=== PATIENT | female | born 1930 | race Caucasian/White ===

== ENCOUNTER 2018-07-25 11:16 | Emergency (ER) | payer MEDICARE, OTHER ==
[~2018-07-25] VITALS: Ht 160 cm; Wt 83.9 kg
[~2018-07-25 11:16] MED LIST: ALBU90OI; AMOCLA875 PO; ASPI325B; ASPI81CH; ASPI81CH PO; ATEN50; BUDE10.22 INH; BUPR100 PO; Bystolic10 MG PO; CYAN500 PO; CYCL10 PO; DICL25ER; DICL50ER PO; DRON2.5; FLAX; FURO40; HYDACE5 PO; HYDPAM50 PO; LOSA50 PO; MONT10T; MONTELUKAST; MULVITA; NEBI10 PO; Norvasc2.5 MG PO; OXYACE5T PO; POTCHL10ER; PRAV20 PO; PRED20 PO; Prilosec Otc20 MG PO; SIMV5 PO; TRAM50 PO; [UNRECOGNIZED DRUG - OTHER]; advair; bystolic PO; cyclobenzaprine; hydrocodone/apap; lisinopril; metoprolol; omeprazole PO
[2018-07-25 11:54] LABS: BASOPHILS ABSOLUTE AUTO 0.02 K/mm3 (0.00-0.23); BASOPHILS PERCENT AUTO 0 % (0-2); EOSINOPHILS ABSOLUTE AUTO 0.11 K/mm3 (0.00-0.68); EOSINOPHILS PERCENT AUTO 1 % (0-6); Hematocrit 35.4 % (33.0-51.0); Hemoglobin 11.9 g/dL (11.5-16.0); IMMATURE GRAN ABSOLUTE AUTO 0.05 K/mm3 (0.00-0.10); IMMATURE GRAN PERCENT AUTO 1 % (0-1); LYMPHOCYTES ABSOLUTE AUTO 1.37 K/mm3 (0.84-5.20); LYMPHOCYTES PERCENT AUTO 15 % (21-46); MONOCYTES ABSOLUTE AUTO 1.07 K/mm3 (0.16-1.47); MONOCYTES PERCENT AUTO 11 % (4-13); Mean Corpuscular HGB 30.5 pg (26.0-34.0); Mean Corpuscular HGB Conc 33.6 g/dL (31.5-36.5); Mean Corpuscular Volume 91 fL (80-100); Mean Platelet Volume 8.4 fL (9.1-12.4); NEUTROPHILS PERCENT AUTO 72 % (41-73); Platelet Count 276 K/mm3 (150-400); RDW Coefficient Variation 13.7 % (11.7-14.2); RDW Standard Deviation 45.4 fL (35.1-46.3); White Blood Cell Count 9.42 K/mm3 (4.00-11.30)
[2018-07-25 12:12] LABS: Bun/Creatinine Ratio 29.3 (12.0-20.0); Calcium, Blood 8.6 mg/dL (8.5-10.1); Creatinine, Blood 0.96 mg/dL (0.40-1.00); Potassium, Blood 4.1 mmol/L (3.5-5.5)
[2018-07-25] MEDS ORDERED: DEXA4 PO (12:20)
[2018-07-25] MEDS ORDERED: CEPH250A PO (12:21)
[2018-07-25] MEDS ORDERED: CLOP75 PO (12:22)
[2018-07-25] MEDS ORDERED: Daily Multiple1 EACH PO (12:22)
[2018-07-25] MEDS ORDERED: MEGARED OMEGA-1 EAC1 PO (12:22)
[2018-07-25] MEDS ORDERED: ASPI81CH PO (12:23)
[2018-07-25] MEDS ORDERED: Pravachol40 MG PO (12:24)
[2018-07-25] MEDS ORDERED: MONT10T PO (12:28)
[2018-07-25] MEDS ORDERED: Ultram50 MG PO (14:40)
== END 2018-07-25 15:13 | disposition home or self-care (01) ==
LOC: ER 11:16
PROVIDERS: Emergency Medicine
DX: S70.01XA Contusion of right hip, initial encounter (principal); I11.0 Hypertensive heart disease with heart failure; I50.9 Heart failure, unspecified; J44.9 Chronic obstructive pulmonary disease, unspecified; Z88.8 Allergy status to other drugs, medicaments and biological substances; Z88.2 Allergy status to sulfonamides; Z88.5 Allergy status to narcotic agent; Z79.899 Other long term (current) drug therapy; Z87.891 Personal history of nicotine dependence; Z79.82 Long term (current) use of aspirin; Z79.01 Long term (current) use of anticoagulants; Z79.51 Long term (current) use of inhaled steroids; W18.30XA Fall on same level, unspecified, initial encounter
CPT/HCPCS: 72192; 73502; 73552; 80048; 85025; 93005; 93010; 99285-25

== ENCOUNTER 2018-11-08 06:02 | Day surgery (SDC) | payer MEDICARE, OTHER ==
[~2018-11-08] VITALS: Ht 160 cm; Wt 79.4 kg
[~2018-11-08 06:02] MED LIST changes: -ALBU90OI; +ALBU90OI INH; +CEPH250A PO; +CLOP75 PO; +DEXA4 PO; +Daily Multiple1 EACH PO; +MEGARED OMEGA-1 EAC1 PO; +MONT10T PO; +Pravachol40 MG PO; +Ultram50 MG PO
== END 2018-11-08 09:20 | disposition home or self-care (01) ==
LOC: ORSCMMR 06:02 → ORD 07:30 → ORSCMMR 07:30
PROVIDERS: Surgery
PROC: 02HV33Z Insertion of Infusion Device into Superior Vena Cava, Percutaneous Approach (ICD-10-PCS; principal; 2018-11-08 07:30)
DX: C50.912 Malignant neoplasm of unspecified site of left female breast (principal); C77.3 Secondary and unspecified malignant neoplasm of axilla and upper limb lymph nodes; E78.5 Hyperlipidemia, unspecified; I10 Essential (primary) hypertension; K21.9 Gastro-esophageal reflux disease without esophagitis; J44.9 Chronic obstructive pulmonary disease, unspecified; I25.10 Atherosclerotic heart disease of native coronary artery without angina pectoris; Z95.2 Presence of prosthetic heart valve; Z79.899 Other long term (current) drug therapy
CPT/HCPCS: 77001; C1788; J0690; J1642; J2250; J3010; J7120

== ENCOUNTER 2018-11-18 12:08 | Emergency (ER) | payer OTHER, MEDICARE ==
[~2018-11-18] VITALS: Ht 160 cm; Wt 77.6 kg
[2018-11-18 13:12] LABS: BASOPHILS ABSOLUTE AUTO 0.01 K/mm3 (0.00-0.23); BASOPHILS PERCENT AUTO 0 % (0-2); EOSINOPHILS ABSOLUTE AUTO 0.28 K/mm3 (0.00-0.68); EOSINOPHILS PERCENT AUTO 3 % (0-6); Hematocrit 32.5 % (33.0-51.0); Hemoglobin 11.3 g/dL (11.5-16.0); IMMATURE GRAN ABSOLUTE AUTO 0.04 K/mm3 (0.00-0.10); IMMATURE GRAN PERCENT AUTO 0 % (0-1); LYMPHOCYTES ABSOLUTE AUTO 0.51 K/mm3 (0.84-5.20); LYMPHOCYTES PERCENT AUTO 6 % (21-46); MONOCYTES ABSOLUTE AUTO 0.99 K/mm3 (0.16-1.47); MONOCYTES PERCENT AUTO 11 % (4-13); Mean Corpuscular HGB 35.2 pg (26.0-34.0); Mean Corpuscular HGB Conc 34.8 g/dL (31.5-36.5); Mean Corpuscular Volume 101 fL (80-100); Mean Platelet Volume 7.7 fL (9.1-12.4); NEUTROPHILS ABSOLUTE AUTO 7.41 K/mm3 (1.96-9.15); NEUTROPHILS PERCENT AUTO 80 % (41-73); Platelet Count 180 K/mm3 (150-400); RDW Coefficient Variation 14.9 % (11.7-14.2); RDW Standard Deviation 55.9 fL (35.1-46.3); Red Blood Cell Count 3.21 M/mm3 (3.80-5.20); White Blood Cell Count 9.24 K/mm3 (4.00-11.30)
[2018-11-18 13:34] LABS: Alanine Aminotransfer (ALT/SGP 31 U/L (12-78); Albumin, Blood 3.2 g/dL (3.4-5.0); Alk Phos 58 U/L (50-136); Anion Gap 9 mmol/L (6-16); Aspartate Aminotrans (AST/SGOT 26 U/L (12-37); Blood Urea Nitrogen 16 mg/dL (8-24); Bun/Creatinine Ratio 25.2 (12.0-20.0); CO2, Blood 24 mmol/L (21-32); Calcium, Blood 8.4 mg/dL (8.5-10.1); Chloride, Blood 91 mmol/L (98-108); Creatinine, Blood 0.63 mg/dL (0.40-1.00); Globulin, Blood 3.1 g/dL (2.2-4.0); Glomerular Filtration Rate >60 (60-); Glucose, Blood 117 mg/dL (70-99); Potassium, Blood 3.8 mmol/L (3.5-5.5); Sodium, Blood 124 mmol/L (136-145); Total Protein, Blood 6.3 g/dL (6.4-8.2); Troponin I 0.027 ng/mL (0.000-0.040)
[2018-11-18] MEDS ORDERED: Vibramycin100 MG PO (14:36)
== END 2018-11-18 15:31 | disposition home or self-care (01) ==
LOC: ER 12:08
PROVIDERS: Emergency Medicine
DX: J44.9 Chronic obstructive pulmonary disease, unspecified (principal); R07.9 Chest pain, unspecified; E87.1 Hypo-osmolality and hyponatremia; I50.9 Heart failure, unspecified; Z96.651 Presence of right artificial knee joint; Z90.710 Acquired absence of both cervix and uterus; Z87.891 Personal history of nicotine dependence; Z88.5 Allergy status to narcotic agent; Z88.2 Allergy status to sulfonamides; Z88.8 Allergy status to other drugs, medicaments and biological substances; Z79.82 Long term (current) use of aspirin; Z79.899 Other long term (current) drug therapy; Z85.3 Personal history of malignant neoplasm of breast
CPT/HCPCS: 36415; 71260; 80053; 83880; 84484; 85025; 93005; 93010; 96360; 99285-25; J7030; Q9967

== ENCOUNTER 2018-11-25 21:38 | Inpatient (IN) | payer MEDICARE, OTHER ==
[~2018-11-25] VITALS: Ht 160 cm; Wt 80.4 kg
[~2018-11-25 21:38] MED LIST changes: +Vibramycin100 MG PO
[2018-11-25] MEDS ORDERED: ALCALAK PO (21:51)
[2018-11-25 22:14] LABS: BASOPHILS ABSOLUTE AUTO 0.02 K/mm3 (0.00-0.23); BASOPHILS PERCENT AUTO 0 % (0-2); EOSINOPHILS ABSOLUTE AUTO 0.04 K/mm3 (0.00-0.68); EOSINOPHILS PERCENT AUTO 1 % (0-6); Hematocrit 29.6 % (33.0-51.0); Hemoglobin 10.8 g/dL (11.5-16.0); IMMATURE GRAN ABSOLUTE AUTO 0.11 K/mm3 (0.00-0.10); IMMATURE GRAN PERCENT AUTO 2 % (0-1); LYMPHOCYTES PERCENT AUTO 14 % (21-46); MONOCYTES ABSOLUTE AUTO 0.69 K/mm3 (0.16-1.47); MONOCYTES PERCENT AUTO 12 % (4-13); Mean Corpuscular HGB Conc 36.5 g/dL (31.5-36.5); Mean Platelet Volume 7.7 fL (9.1-12.4); NEUTROPHILS ABSOLUTE AUTO 4.07 K/mm3 (1.96-9.15); NEUTROPHILS PERCENT AUTO 71 % (41-73); Platelet Count 232 K/mm3 (150-400); RDW Coefficient Variation 13.9 % (11.7-14.2); RDW Standard Deviation 48.9 fL (35.1-46.3); Red Blood Cell Count 3.09 M/mm3 (3.80-5.20); White Blood Cell Count 5.73 K/mm3 (4.00-11.30)
[2018-11-25 22:17] LABS: Mean Corpuscular Volume 96 fL (80-100)
[2018-11-25 22:29] LABS: Source, Urine Clean Catch
[2018-11-25 22:32] LABS: Bilirubin, Urine Neg (Neg); Blood, Urine Neg (Neg); Glucose Qualitative, Urine Neg (Neg); Ketones, Urine Neg (Neg); Leukocyte Esterase, Urine Neg (Neg); Nitrite, Urine Neg (Neg); Protein, Urine Neg (Neg); Urobilinogen, Urine NORM (Normal)
[2018-11-25 22:35] LABS: Alanine Aminotransfer (ALT/SGP 37 U/L (12-78); Albumin, Blood 3.1 g/dL (3.4-5.0); Albumin/Globulin Ratio 1.1 (0.8-1.8); Alk Phos 53 U/L (50-136); Anion Gap 13 mmol/L (6-16); Aspartate Aminotrans (AST/SGOT 24 U/L (12-37); Bilirubin, Total 0.7 mg/dL (0.1-1.0); Blood Urea Nitrogen 19 mg/dL (8-24); CO2, Blood 22 mmol/L (21-32); Calcium, Blood 8.1 mg/dL (8.5-10.1); Chloride, Blood 82 mmol/L (98-108); Creatinine, Blood 0.68 mg/dL (0.40-1.00); Globulin, Blood 2.7 g/dL (2.2-4.0); Glomerular Filtration Rate >60 (60-); Glucose, Blood 117 mg/dL (70-99); Sodium, Blood 117 mmol/L (136-145); Total Protein, Blood 5.8 g/dL (6.4-8.2)
[2018-11-25 22:36] LABS: Appearance, Urine Clear (Clear); Color, Urine Yellow (P-Yellow)
[2018-11-26 01:58] LABS: Anion Gap 11 mmol/L (6-16); Blood Urea Nitrogen 19 mg/dL (8-24); Bun/Creatinine Ratio 28.1 (12.0-20.0); CO2, Blood 24 mmol/L (21-32); Calcium, Blood 7.9 mg/dL (8.5-10.1); Chloride, Blood 84 mmol/L (98-108); Creatinine, Blood 0.68 mg/dL (0.40-1.00); Glomerular Filtration Rate >60 (60-); Glucose, Blood 111 mg/dL (70-99); Potassium, Blood 3.2 mmol/L (3.5-5.5); Sodium, Blood 119 mmol/L (136-145)
[2018-11-26 02:36] LABS: Adenovirus Not Detected (NOT DETECT); Bordetella pertussis Not Detected (NOT DETECT); Chlamydophila pneumoniae Not Detected (NOT DETECT); Coronavirus 229E Not Detected (NOT DETECT); Coronavirus HKU1 Not Detected (NOT DETECT); Coronavirus NL63 Not Detected (NOT DETECT); Coronavirus OC43 Not Detected (NOT DETECT); Human Metapneumovirus Not Detected (NOT DETECT); Influenza A/2009-H1 Not Detected (NOT DETECT); Influenza A/H1 Not Detected (NOT DETECT); Influenza A/H3 Not Detected (NOT DETECT); Influenza B Not Detected (NOT DETECT); Mycoplasma pneumoniae Not Detected (NOT DETECT); Parainfluenza Virus 1 Not Detected (NOT DETECT); Parainfluenza Virus 2 Not Detected (NOT DETECT); Parainfluenza Virus 3 Not Detected (NOT DETECT); Parainfluenza Virus 4 Not Detected (NOT DETECT); Respiratory Syncytial Virus Not Detected (NOT DETECT)
[2018-11-26 04:31] LABS: Human Rhinovirus/Enterovirus Detected (NOT DETECT); Influenza A Not Detected (NOT DETECT)
--- NOTE | 2018-11-26 05:25 | NUR ---
Pt gave this student permission to look through her medical records and provide care today on 11/26/18.
[2018-11-26 05:29] LABS: Hematocrit 25.2 % (33.0-51.0); Hemoglobin 9.2 g/dL (11.5-16.0); Mean Corpuscular HGB 34.7 pg (26.0-34.0); Mean Corpuscular HGB Conc 36.5 g/dL (31.5-36.5); Mean Corpuscular Volume 95 fL (80-100); Mean Platelet Volume 7.8 fL (9.1-12.4); Platelet Count 208 K/mm3 (150-400); RDW Coefficient Variation 13.8 % (11.7-14.2); RDW Standard Deviation 47.6 fL (35.1-46.3); Red Blood Cell Count 2.65 M/mm3 (3.80-5.20); White Blood Cell Count 9.34 K/mm3 (4.00-11.30)
--- NOTE | 2018-11-26 06:01 | NUR ---
PHYSICIAN COMMUNICATION [id number] DR. SOLARES NOTIFIED PT UNABLE TO VOID THIS AM; PT PREFERS STRAIGHT CATH. ONE TIME ORDER GIVEN AND BLADDER SCAN ORDER. PERMISSION TO CANCEL 1838 LAB DRAW. [facility].
[2018-11-26 06:05] LABS: Alanine Aminotransfer (ALT/SGP 30 U/L (12-78); Albumin, Blood 2.8 g/dL (3.4-5.0); Albumin/Globulin Ratio 1.2 (0.8-1.8); Alk Phos 48 U/L (50-136); Aspartate Aminotrans (AST/SGOT 23 U/L (12-37); Bilirubin, Total 0.7 mg/dL (0.1-1.0); Blood Urea Nitrogen 19 mg/dL (8-24); Bun/Creatinine Ratio 26.5 (12.0-20.0); CO2, Blood 21 mmol/L (21-32); Calcium, Blood 7.4 mg/dL (8.5-10.1); Chloride, Blood 86 mmol/L (98-108); Creatinine, Blood 0.72 mg/dL (0.40-1.00); Globulin, Blood 2.4 g/dL (2.2-4.0); Glomerular Filtration Rate >60 (60-); Glucose, Blood 105 mg/dL (70-99); Potassium, Blood 3.3 mmol/L (3.5-5.5); Total Protein, Blood 5.2 g/dL (6.4-8.2)
[2018-11-26 06:07] LABS: Anion Gap 12 mmol/L (6-16)
[2018-11-26 06:11] LABS: Sodium, Blood 119 mmol/L (136-145)
--- NOTE | 2018-11-26 08:29 | NUR ---
SHIFT SUMMARY PT A&O X4 T/O SHIFT. NO ACUTE CHAGES. PT ADMITTED FROM ER. IMMOBILIZER TO RLE; PPPX4; PT STS N/T AT BASELINE. PAIN IN LLE AND BACK PER EMAR. RLE ELEVATED T/O SHIFT. EXT PWD. ABRATION TO L KNEE, DRY, NO BRUISING OR OTHER INJURY D/T PT REPORTED FALL AT HOME NOTED. TELEMETRY IN PLACE; SE WITH BBB THIS AM PER JOINT MACHINE OPERATOR. RA; DENIES SOB, NAUSEA AND CP. PT REPOSITIONED TOLERATED. PT UNABLE TO VOID, THIS AM, BLADDER SCAN OVER 700 ML; STRAIGHT CATH X1 PER DR. SOLARES; 750 ML URINE OUT. BED ALARM AND SIDE [id number]. REPORT GIVEN TO DAY SHIFT RN.
--- NOTE | 2018-11-26 10:16 | NUR ---
PLAVIX/ASA DR. CERDA CONTACTED TO ASK IF PLAVIX AND ASA SHOULD BE HELD. PER DR. CERDA WILL CONTINUE TO GIVE ASA AND PLAVIX SINCE PT REPORTS HAVING STENTS PLACED INT THE LAST 3-4 MONTHS. WILL CONTINUE TO MONITOR.
--- NOTE | 2018-11-26 10:18 | NUR ---
R HIP PAIN PT REPORTS SHE IS HAVING PAIN IN HER R HIP AND THAT IS THE LOCATION OF MOST OF HER PAIN. PT HAS BRUISING TO HER R HIP AND HER R FLANK AREA. DR. CERDA NOTIFIED. WILL CONTINUE TO MONITOR.
[2018-11-26 12:19] LABS: Anion Gap 10 mmol/L (6-16); Blood Urea Nitrogen 18 mg/dL (8-24); Bun/Creatinine Ratio 28.9 (12.0-20.0); CO2, Blood 21 mmol/L (21-32); Calcium, Blood 7.4 mg/dL (8.5-10.1); Chloride, Blood 85 mmol/L (98-108); Creatinine, Blood 0.62 mg/dL (0.40-1.00); Glomerular Filtration Rate >60 (60-); Glucose, Blood 140 mg/dL (70-99); Potassium, Blood 3.9 mmol/L (3.5-5.5); Sodium, Blood 116 mmol/L (136-145)
--- NOTE | 2018-11-26 14:15 | NUR ---
MEDICAL RECRUITER ASSESSMENT ASSESSMENT PERFORMED BY LUIS A STUDENT NURSE WITH SUPERVISION BY THIS RN AT THE BEDSIDE. DOCUMENTATION WAS REVIEWED AND THIS RN AGREES WITH STUDENT NURSE DOCUMENTATION. WILL CONTINUE TO MONITOR FOR ANY CHANGES.
[2018-11-26 16:46] LABS: Blood Urea Nitrogen 16 mg/dL (8-24); Bun/Creatinine Ratio 22.3 (12.0-20.0); CO2, Blood 22 mmol/L (21-32); Calcium, Blood 7.7 mg/dL (8.5-10.1); Chloride, Blood 86 mmol/L (98-108); Creatinine, Blood 0.72 mg/dL (0.40-1.00); Glomerular Filtration Rate >60 (60-); Glucose, Blood 98 mg/dL (70-99)
[2018-11-26 17:10] LABS: Anion Gap 8 mmol/L (6-16); Sodium, Blood 116 mmol/L (136-145)
[2018-11-26 17:29] LABS: Source, Urine Catheter
[2018-11-26 17:45] LABS: Bilirubin, Urine Neg (Neg); Blood, Urine Neg (Neg); Glucose Qualitative, Urine Neg (Neg); Ketones, Urine 1+ (Neg); Leukocyte Esterase, Urine Neg (Neg); Nitrite, Urine Neg (Neg); Protein, Urine Neg (Neg); Urobilinogen, Urine NORM (Normal)
[2018-11-26 17:51] LABS: Appearance, Urine Clear (Clear); Color, Urine Yellow (P-Yellow)
[2018-11-26 17:51] LABS: Uric Acid, Blood 2.9 mg/dL (2.6-6.0)
--- NOTE | 2018-11-26 18:05 | NUR ---
SHIFT SUMMARY PAIN HAS BEEN MINIMAL THIS SHIFT AND IS MANAGED WITH TYLENOL AND IV FENTANYL. SODIUM HAS REMAINED LOW THIS SHIFT, DR. CASTILLO CONSULTED FOR MANAGEMENT. PT REQUIRES ASSISTANCE WHEN REPOSITIONING. VSS. WILL CONTINUE TO MONITOR.
[2018-11-26 18:14] LABS: Anion Gap 9 mmol/L (6-16); Blood Urea Nitrogen 14 mg/dL (8-24); Bun/Creatinine Ratio 21.5 (12.0-20.0); CO2, Blood 21 mmol/L (21-32); Calcium, Blood 7.5 mg/dL (8.5-10.1); Chloride, Blood 87 mmol/L (98-108); Creatinine, Blood 0.65 mg/dL (0.40-1.00); Glomerular Filtration Rate >60 (60-); Glucose, Blood 91 mg/dL (70-99); Potassium, Blood 4.1 mmol/L (3.5-5.5); Sodium, Blood 117 mmol/L (136-145)
--- NOTE | 2018-11-26 19:34 | NUR ---
HYPONATREMIA DR. CASTILLO NOTIFIED OF SODIUM OF 117, URIC ACID OF 2.9 AND SERUM OSMOLALITY OF 243 AT APPROXIMATELY 1835. ORDER RECIEVED TO TRANSFER TO ICU WITH 3% SALINE. DR. CERDA NOTIFIED OF PLAN TO TRANSFER. NO NOTED CHANGE IN PATIENTS CONDITION.
--- NOTE | 2018-11-26 19:37 | NUR ---
REPORT REPORT CALLED TO ANNITA SIERRA IN ICU AT APPROXIMATELY 1921. FAMILY WAS NOTIFIED OF PLAN TO TRANSFER AT 1724. FAMILY EDUCATED ABOUT TRANFER AND PT'S CONDITION.
--- NOTE | 2018-11-26 21:18 | NUR ---
3% SALINE STARTED AT THIS TIME THROUGH 18 G IV TO RIGHT UPPER ARM PER CASTILLO
--- NOTE | 2018-11-26 21:46 | NUR ---
ASSUMING CARE RECEIVED PT REPORT FROM DAY SHIFT SURGICAL NURSE. PT IS BEING TRANSFERED TO THE ICU DUE TO HYPONATREMIA AND INFUSION OF 3% SALINE. PT IS ADMITTED POST FALL WITH R FEMUR FRACTURE. PT IS ALERT AND ORIENTED AT THE TIME OF ARRIVAL TO THE UNIT. PT HAS 1 PERIPHERAL IV ON THE LEFT HAND, PRESENT ON ARRIVAL TO UNIT. PT HAS A MASTECTOMY TO THE LEFT BREAST. PT HAS A POWER PORT TO THE RIGHT UPPER CHEST. SITE EXHIBITS SIGNIFICANT BRUISING TO SURROUNDING AREA. SITE APPEARS TO BE HEALING WELL. PT STATES THAT POWER PORT WAS PLACED RECENTLY BUT IS UNSURE OF EXACT DATE. PT STATES THAT IT HAS NOT BEEN ACCESSED BEFORE. NO DOCUMENTATION AVAILABLE AT THIS TIME REGARDING SITE ACCESS. DR CASTILLO CALLED AND INFORMED OF PT'S POWER PORT AND LACK OF OTHER CENTRAL CHITO ACCESS. DR CASTILLO STATED AND GAVE INSTRUCTIONS TO TRANSFUSE 3% SALINE THROUGH PERIPHERAL LINE. 18G PERIPHERAL LINE PLACED IN RIGHT AC/UPPER ARM. TRANSFUSION OF 3% SALINE STARTED AT 2114. INSTRUCTIONS FROM JONATHAN GIVEN TO DRAW STAT Na+ 2 HOURS AFTER INITIATION OF 3% SALINE INFUSION. WILL DRAW LABS AND CALL WITH RESULTS INSTRUCTED. PT IS ON ROOM AIR WITH SPO2 IN THE HIGH 90'S. HR IS IN THE 70'S BP IS IN THE 120-140S PT HAS OSPINA CATH IN PLACE CURRENTLY PATENT AND DRAINING CLEAR YELLOW URINE AT THIS TIME. ASSUMED CARE OF PT AT THE TIME OF ARRIVAL TO UNIT. WILL CONTINUE TO MONITOR PT.
[2018-11-26 23:46] LABS: Anion Gap 7 mmol/L (6-16); Blood Urea Nitrogen 12 mg/dL (8-24); Bun/Creatinine Ratio 19.4 (12.0-20.0); CO2, Blood 24 mmol/L (21-32); Calcium, Blood 7.8 mg/dL (8.5-10.1); Chloride, Blood 91 mmol/L (98-108); Creatinine, Blood 0.62 mg/dL (0.40-1.00); Glomerular Filtration Rate >60 (60-); Glucose, Blood 100 mg/dL (70-99); Potassium, Blood 4.2 mmol/L (3.5-5.5); Sodium, Blood 122 mmol/L (136-145)
--- NOTE | 2018-11-26 23:57 | NUR ---
DR CASTILLO CALLED. RESULTS FROM 2 HOUR POST INITIATION OF INFUSION Na LABS RECEIVED. PT Na HAD INCREASED TO 121 AFTER 2 HOURS OF INFUSION OF 3% SALINE. DR CASTILLO CALLED AND INFORMED OF PTS SODIUM LAB VALUE. INSTRUCTIONS RECEIVED TO PLACE 3% SALINE ON STANDBY UNTIL FURTHER NOTICE AND TO PERFORM A STAT Na LAB DRAW AT 0200. ORDERS ENTERED RECEIVED. 3% SALINE PLACED ON STANDBY INSTRUCTED. WILL CONTINUE TO MONITOR PT.
--- NOTE | 2018-11-27 02:37 | NUR ---
DR CASTILLO. RESULTS FROM [address] CASTILLO CALLED AND INFORMED OF PTS SODIUM AT 124. INSTRUCTIONS RECEIVED TO CALL DR CASTILLO WITH RESULTS OF AM LABS. 3% SALINE REMAINES OFF AT THIS TIME. WILL CONTINUE TO MONITOR PT.
--- NOTE | 2018-11-27 04:30 | NUR ---
CONFUSION PT AWOKE FOR AM LABS AND APPEARED TO BE CONFUSED. PT STATED THAT SHE DID NOT REMEMBER FALLING OR BEING IN THE HOSPITAL. PT IS BRANNON TO FOLLOW COMMANDS AND DOES NOT HAVE ANY NEW OR ABNORMAL WEAKNESS COMPATED TO PREVIOUS ASSESSMENT. PT CAREERS ADVISER ARE EQUAL. PT REMAINS SALINE LOCKED AT THIS TIME. WILL CONTINUE TO MONITOR PT.
[2018-11-27 04:40] LABS: Hematocrit 23.7 % (33.0-51.0); Hemoglobin 8.4 g/dL (11.5-16.0)
[2018-11-27 04:57] LABS: Anion Gap 8 mmol/L (6-16); Blood Urea Nitrogen 10 mg/dL (8-24); Bun/Creatinine Ratio 16.1 (12.0-20.0); CO2, Blood 23 mmol/L (21-32); Calcium, Blood 7.5 mg/dL (8.5-10.1); Chloride, Blood 94 mmol/L (98-108); Creatinine, Blood 0.62 mg/dL (0.40-1.00); Glomerular Filtration Rate >60 (60-); Glucose, Blood 95 mg/dL (70-99); Potassium, Blood 4.3 mmol/L (3.5-5.5); Sodium, Blood 125 mmol/L (136-145)
[2018-11-27 05:03] LABS: Magnesium, Blood 1.9 mg/dL (1.6-2.4)
[2018-11-27 05:04] LABS: Albumin, Blood 2.7 g/dL (3.4-5.0); Anion Gap 7 mmol/L (6-16); Blood Urea Nitrogen 10 mg/dL (8-24); CO2, Blood 23 mmol/L (21-32); Calcium, Blood 7.6 mg/dL (8.5-10.1); Chloride, Blood 94 mmol/L (98-108); Creatinine, Blood 0.56 mg/dL (0.40-1.00); Glomerular Filtration Rate >60 (60-); Glucose, Blood 95 mg/dL (70-99); Phosphorus, Blood 1.8 mg/dL (2.5-4.9); Potassium, Blood 4.2 mmol/L (3.5-5.5); Sodium, Blood 124 mmol/L (136-145)
--- NOTE | 2018-11-27 06:26 | NUR ---
SHIFT SUMMARY NOTE 3% SALINE HAS BEEN DC'D. PT IS RECEIVING 10 MM OF K-PHOS AT THIS TIME. PT REAMINS CONFUSED AT THIS TIME. DR CASTILLO INFORMED OF PT'S CONFUSION. INSTRUCTIONS GIVEN TO MONITOR PT. PT VITAL SIGNS HAVE REMAINED STABLE THROUGH THE NIGHT. PT REMAINS ON ROOM AIR WITH SPO2 IN THE HIGH 90'S. PT OSPINA REMAINS PATENT AND IS DRAINING CLEAR YELLOW URINE AT THIS TIME. PT HAD APPROX 1700ML OF URINE OUTPUT AT THE END OF SHIFT. PT SODIUM HAS INCREASED TO 125 WITH MOST RECENT LAB DRAW. ORDERS RECEIVED FROM JONATHAN TO START PT ON 1G SODIUM CHLORIDE TABLETS TID, 10MEQ PO KCL QD, LASIX 20MG QD, AND START PT ON 1000ML FLUID RESTRICTION. ORDERS ENTERED RECEIVED. PT WAS PROVIDED X1 25 MCG FENTANYL AND X1 650MG TYLENOL WITH SOME RELEIF. PT RIGHT LEG REMAINS IN BRACE AT THIS TIME. PT REMAINS VERY PAINFUL WITH MOTION OF RIGHT LEG. WILL REPORT OFF TO ONCOMING DAY SHIFT NURSE.
--- NOTE | 2018-11-27 07:30 | NUR ---
ASSUMED CARE ASSUMED CARE OF PATIENT. PATIENT AWAKE AND ALERT. BEDSIDE REPORT DONE. IMMOBILIZER IN PLACE. PATIENT STATES SHE DOES NOT HAVE PAIN UNLESS SHE MOVES. WILL CONTINUE TO EVALUATE PAIN AND MEDICATE NEEDED PER ORDERS. WILL ENCOURAGE PATIENT TO MOBILIZE MUCH ABLE. WILL CONTINUE TO TURN THE PATIENT FREQUENTLY TO PREVENT SKIN BREAKDOWN AND PROMOTE PULMONARY DRAINAGE. WILL CONTINUE TO ENCOURAGE THE PATIENT TO COUGH AND DEEP BREATH. WILL NOTIFY PHYSICIANS OF ANY CHANGES.
[2018-11-27 07:46] LABS: Hematocrit 23.3 % (33.0-51.0); Hemoglobin 8.2 g/dL (11.5-16.0)
[2018-11-27 13:34] LABS: Hematocrit 26.3 % (33.0-51.0)
[2018-11-27 14:07] LABS: Stool Occult Bld Immuno 1 Negative (NEGATIVE)
--- NOTE | 2018-11-27 14:22 | NUR ---
I entered patient's room and found patient sitting up in bed and alert. Patient immediately shared the long list of health struggles and yet did so with great thankfulness for her family and their support. Although patient had a great outlook and disposition patient also expressed concerns about her ability to thrive going forward. I listened empathically, provided anxiety containment and pastoral child care counselor. ALthough patient was being moved to another room, she agreed to prayer. After the prayer patient thanked me. Patient appeared to show signs of an elevated mood and reduced stress.
--- NOTE | 2018-11-27 14:24 | NUR ---
PATIENT TRANSFERED VIA BED TO [facility]. REPORT CALLED EARLIER TO NURSE. FAMILY PRESENT AT TRANSFER AND ASSISTED WITH TAKING PERSONAL ITEMS. PATIENT HAD ANOTHER BM PRIOR TO TRANSFER. IV DC'D FROM L HAND.
--- NOTE | 2018-11-27 19:47 | NUR ---
PT TRANSFERED FROM ICU DUE TO LOS SODIUM LEVELS. PT SLIGHTLY CONFUSED AND SLOW TO RESPOND. ORIENTED TO ROOM. CALL LIGHT IN REACH. R HIP FX PAIN MAINLY WITH MOVEMENT, MEDICATED PER EMAR. PT COMFORTABLE AND ASLEEP.
[2018-11-28 04:18] LABS: BASOPHILS ABSOLUTE AUTO 0.05 K/mm3 (0.00-0.23); BASOPHILS PERCENT AUTO 1 % (0-2); EOSINOPHILS ABSOLUTE AUTO 0.04 K/mm3 (0.00-0.68); EOSINOPHILS PERCENT AUTO 1 % (0-6); Hematocrit 23.5 % (33.0-51.0); Hemoglobin 8.2 g/dL (11.5-16.0); IMMATURE GRAN ABSOLUTE AUTO 0.08 K/mm3 (0.00-0.10); IMMATURE GRAN PERCENT AUTO 1 % (0-1); LYMPHOCYTES ABSOLUTE AUTO 0.63 K/mm3 (0.84-5.20); LYMPHOCYTES PERCENT AUTO 7 % (21-46); MONOCYTES PERCENT AUTO 11 % (4-13); Mean Corpuscular HGB 34.9 pg (26.0-34.0); Mean Corpuscular HGB Conc 34.9 g/dL (31.5-36.5); Mean Platelet Volume 7.6 fL (9.1-12.4); NEUTROPHILS ABSOLUTE AUTO 6.82 K/mm3 (1.96-9.15); NEUTROPHILS PERCENT AUTO 80 % (41-73); Platelet Count 204 K/mm3 (150-400); RDW Coefficient Variation 14.7 % (11.7-14.2); RDW Standard Deviation 52.8 fL (35.1-46.3); Red Blood Cell Count 2.35 M/mm3 (3.80-5.20); White Blood Cell Count 8.52 K/mm3 (4.00-11.30)
[2018-11-28 04:19] LABS: Mean Corpuscular Volume 100 fL (80-100)
[2018-11-28 04:35] LABS: Albumin, Blood 2.7 g/dL (3.4-5.0); Anion Gap 7 mmol/L (6-16); Blood Urea Nitrogen 10 mg/dL (8-24); Bun/Creatinine Ratio 15.2 (12.0-20.0); CO2, Blood 24 mmol/L (21-32); Calcium, Blood 7.6 mg/dL (8.5-10.1); Chloride, Blood 96 mmol/L (98-108); Creatinine, Blood 0.66 mg/dL (0.40-1.00); Glomerular Filtration Rate >60 (60-); Glucose, Blood 99 mg/dL (70-99); Magnesium, Blood 1.9 mg/dL (1.6-2.4); Phosphorus, Blood 2.1 mg/dL (2.5-4.9); Potassium, Blood 4.1 mmol/L (3.5-5.5); Sodium, Blood 127 mmol/L (136-145)
--- NOTE | 2018-11-28 05:55 | NUR ---
DR. CASTILLO AT BEDSIDE. VERBAL ORDER RECIEVED FOR 1 EXTRA DOSE OF SODIUM CHLORIDE 1GM PO, TODAY ONLY. VERBAL ORDER READ BACK AND CONFIRMED.
--- NOTE | 2018-11-28 06:24 | NUR ---
LYING IN SEMI FOWLERS WITH EYES CLOSED. HAS BEEN COMPLIANT WITH FLUID RESTRICTION. EXTRA DOSE ORDERED BY DR. CASTILLO GIVEN WITH ICE WATER AND ORAL CARE ENCOURAGED. DENIES PAIN, DISCOMFORT, OR FURTHER NEEDS AT THIS TIME. SAFETY MEASURES IN PLACE. WILL CONTINUE TO MONTIOR.
--- NOTE | 2018-11-28 10:10 | NUR ---
DR DOAN BEEN HERE RECENTLY.
--- NOTE | 2018-11-28 12:04 | NUR ---
I/S GIVEN EARLIER AFTER DR DOAN HERE. PT DEMONSTRATING USE WELL WITH ASSIST. FAMILY HERE NOW.
--- NOTE | 2018-11-28 13:30 | NUR ---
PT MEDICATED WITH SODIUM TAB PER EMAR. GAVE WITH 30ML WATER. FAMILY AT BEDSIDE.
--- NOTE | 2018-11-28 18:47 | NUR ---
SHIFT SUMMARY PT EATING AND DRINKING. PT ON FLUID RESTRICTION. PT BEEN ASSISTED WITH ADL'S PRN. PT BEEN REPOSITIONED MULT TIMES. PT FAMILY IN TO VISIT TODAY. DR PORTER IN ROOM WHEN PT FAMILY PRESENT. PT ALARM IN PLACE. PT CONT TO DENY PAIN.
[2018-11-29 04:51] LABS: Hematocrit 22.3 % (33.0-51.0); Hemoglobin 7.6 g/dL (11.5-16.0)
[2018-11-29 05:10] LABS: Albumin, Blood 2.6 g/dL (3.4-5.0); Anion Gap 7 mmol/L (6-16); Blood Urea Nitrogen 13 mg/dL (8-24); Bun/Creatinine Ratio 18.7 (12.0-20.0); CO2, Blood 24 mmol/L (21-32); Chloride, Blood 100 mmol/L (98-108); Creatinine, Blood 0.69 mg/dL (0.40-1.00); Glomerular Filtration Rate >60 (60-); Glucose, Blood 87 mg/dL (70-99); Magnesium, Blood 2.1 mg/dL (1.6-2.4); Potassium, Blood 3.9 mmol/L (3.5-5.5); Sodium, Blood 131 mmol/L (136-145)
[2018-11-29 05:18] LABS: Percent Saturation 13.8 % (15.0-50.0)
--- NOTE | 2018-11-29 05:53 | NUR ---
SPOKE WITH DR. CASTILLO THIS AM, NOTIFIED OF PT SODIUM LEVEL, SEE NEW ORDER, WILL TRANSFUSE. ALSO CALLED DR LARIOS WITH HGB RESULT OF 7.6 THIS AM. ORDER TO TRANSFUSE 2 UNITS OF BLOOD. AWAITING BLOOD SLIPS AT THIS TIME. PT STABLE AND APPEARS TO BE SLEEPING AT THIS TIME
--- NOTE | 2018-11-29 07:12 | NUR ---
LAB IN TO DRAW TYPE AND SCEEN AT ABOUT 0615, WILL AWAIT BLOOD SLIPS. ELVIS SIERRA, UPDATED ON PT STATUS.
--- NOTE | 2018-11-29 08:03 | NUR ---
1ST UNIT OF BLOOD STARTED. DISCUSSED PT'S STATUS WITH CLINICAL COORDINATOR AND DAYSURGERY STAFF. PT EDUCATED ON S/SX OF REACTION. PT REPOSITIONED PER PT REQ.
[2018-11-29 08:36] LABS: International Normalized Ratio 1.04; Prothrombin Time Results 10.7 Sec (9.7-11.5)
--- NOTE | 2018-11-29 09:05 | NUR ---
DR KANG CALLED, INFORMED OF PT'S H+H, ORDER TO GIVE 2 UNITS OF BLOOD WELL PT INR. REPORTS TO HOLD PLAVIX. REPORTS OK TO GIVE LOVENOX TODAY. REPORTS TO DISCUSS HOLDING LOVENOX AND ASA WITH DR DOAN. DR KANG REPORTS TO FEED PT SHE WILL NOT BE DOING PROCEDURE TODAY.
--- NOTE | 2018-11-29 10:10 | NUR ---
DR DOAN HERE TO SEE PT. DISCUSSED BLOOD INFUSIONS, MEDS INCLUDING TO GIVE ASA AND TO HOLD PLAVIX TODAY. ALSO DISCUSSED GIVING LOVENOX.
--- NOTE | 2018-11-29 11:28 | NUR ---
1ST UNIT OF BLOOD COMPLETE. PT REPORTS BREATHING APPROX SAME. PT HAS MOIST COUGH WHICH SHE HAS HAD OCCASIONALLY. PT RECENTLY MED WITH LASIX. WILL DISCUSS WITH . PT APPEARS IN NO DISTRESS AT THIS TIME. VSS.
--- NOTE | 2018-11-29 12:35 | NUR ---
PT NO LONGER HAS ANY FINE CRACKLES TO LUNGS. DR DOAN NOTIFIED. PT CONT TO NOT BE IN ANY DISTRESS, UPRIGHT EATING LUNCH WITH FAMILY PRESENT. DR DOAN REPORTS TO GIVE 2 UNIT AND REASSESS PT. WILL GIVE 2ND UNIT AFTER PT LUNCH COMPLETE.
--- NOTE | 2018-11-29 13:45 | NUR ---
As I entered the patient's room, I was welcomed by the patient, her and her son. Patient was sitting up in bed finishing her lunch. Patient expressed her disappointment about the delays in having her surgery and frustration about a continued stay in the hospital away from home. I listened empathically, explored patient's belief system and normalized her experience. I provided emotional support and prayer as well. Patient and family responded favorably with visible reduction in stress and expressed restored reta. They welcomed a return visit.
--- NOTE | 2018-11-29 14:22 | NUR ---
2ND UNIT OF BLOOD STARTED. PT LS CLEAR. VSS. PT BEEN EDUCATED ON S/SX OF REACTION. FAMILY PRESENT. 2ND UNIT GOING IN SLOWER THAN 1ST PER DR DOAN.
--- NOTE | 2018-11-29 16:47 | NUR ---
SHIFT SUMMARY PT EATING AND DRINKING. DID NOT HAVE PROCEDURE TODAY. PT RECIEVING 2ND UNIT OF BLOOD AT THIS TIME. PT BEEN ASSISTED WITH ADL'S PRN. PT BEEN REPOSITIONED MULT TIMES. PT BEEN EDUCATED ON FLUID RESTRICTION. PT FAMILY BEEN TO SEE PT. DR DOAN BEEN TO SEE PT. PT DEMONSTRATED COUGHING, I/S MULT TIMES TODAY. ALARM IN PLACE. R LEG CONT TO BE IN IMMOBILIZER AND ELEVATED ON PILLOW.
--- NOTE | 2018-11-29 17:34 | NUR ---
2ND UNIT COMPLETE. PT BEEN RESTING QUIETLY. PT LS CLEAR AT THIS TIME.
--- NOTE | 2018-11-30 04:29 | NUR ---
SUMMARY: NO ACUTE CHANGE TONIGHT. VSS, PT A/O UPON ASSESSMENT, BED ALARM ON FOR SAFETY. PT REPOSITIONED, R LEG IMMOBILIZED AND ELEVATED, GOOD CSM. ONE SMALL BM TONIGHT. PT DENIES PAIN AND SOB. PLAN IS FOR FEMUR REPAIR IF PT LABS STABLE. AWAITING SODIUM AND HGB RESULTS. NO SAFETY CONCERNS AT THIS TIME.
[2018-11-30 05:59] LABS: Hematocrit 28.8 % (33.0-51.0); Hemoglobin 9.7 g/dL (11.5-16.0)
--- NOTE | 2018-11-30 06:33 | NUR ---
DR. SPENCE IN TO SEE PT AT 0630, GAVE QUICK UPDATE ON PT STATUS
[2018-11-30 06:40] LABS: Albumin, Blood 2.6 g/dL (3.4-5.0); Anion Gap 7 mmol/L (6-16); Blood Urea Nitrogen 13 mg/dL (8-24); Bun/Creatinine Ratio 20.3 (12.0-20.0); CO2, Blood 23 mmol/L (21-32); Calcium, Blood 7.4 mg/dL (8.5-10.1); Chloride, Blood 102 mmol/L (98-108); Creatinine, Blood 0.64 mg/dL (0.40-1.00); Glomerular Filtration Rate >60 (60-); Glucose, Blood 94 mg/dL (70-99); Magnesium, Blood 2.1 mg/dL (1.6-2.4); Sodium, Blood 132 mmol/L (136-145)
--- NOTE | 2018-11-30 18:04 | NUR ---
SHIFT SUMMARY PATIENT HAS DENIED NEED FOR PAIN MED THIS SHIFT. SLIGHT DISCOMFORT NOTED WHEN REPOSITIONED, OTHERWISE, APPEARS QUITE COMFORTABLE. CIRC CHECKS TO R LEG WNL. IVF INFUSING PER ORDER; SITE CLEAR. TOLERATING PO W/O C/O. FAMILY IN TO SEE THIS AFTERNOON. PLAN FOR OC TO OR TOMORROW FOR R FEMUR FX REPAIR.
[2018-12-01 05:33] LABS: BASOPHILS ABSOLUTE AUTO 0.03 K/mm3 (0.00-0.23); BASOPHILS PERCENT AUTO 0 % (0-2); EOSINOPHILS ABSOLUTE AUTO 0.06 K/mm3 (0.00-0.68); EOSINOPHILS PERCENT AUTO 1 % (0-6); Hematocrit 29.4 % (33.0-51.0); Hemoglobin 9.7 g/dL (11.5-16.0); IMMATURE GRAN ABSOLUTE AUTO 0.07 K/mm3 (0.00-0.10); IMMATURE GRAN PERCENT AUTO 1 % (0-1); LYMPHOCYTES ABSOLUTE AUTO 0.65 K/mm3 (0.84-5.20); LYMPHOCYTES PERCENT AUTO 10 % (21-46); MONOCYTES ABSOLUTE AUTO 0.96 K/mm3 (0.16-1.47); MONOCYTES PERCENT AUTO 14 % (4-13); Mean Corpuscular HGB 32.8 pg (26.0-34.0); Mean Corpuscular Volume 99 fL (80-100); Mean Platelet Volume 7.7 fL (9.1-12.4); NEUTROPHILS PERCENT AUTO 74 % (41-73); Platelet Count 200 K/mm3 (150-400); RDW Coefficient Variation 18.7 % (11.7-14.2); RDW Standard Deviation 67.5 fL (35.1-46.3); Red Blood Cell Count 2.96 M/mm3 (3.80-5.20); White Blood Cell Count 6.87 K/mm3 (4.00-11.30)
[2018-12-01 06:08] LABS: Albumin, Blood 2.6 g/dL (3.4-5.0); Anion Gap 8 mmol/L (6-16); Blood Urea Nitrogen 14 mg/dL (8-24); Bun/Creatinine Ratio 22.2 (12.0-20.0); CO2, Blood 21 mmol/L (21-32); Calcium, Blood 7.8 mg/dL (8.5-10.1); Chloride, Blood 103 mmol/L (98-108); Creatinine, Blood 0.63 mg/dL (0.40-1.00); Glomerular Filtration Rate >60 (60-); Glucose, Blood 96 mg/dL (70-99); Phosphorus, Blood 2.3 mg/dL (2.5-4.9); Potassium, Blood 4.4 mmol/L (3.5-5.5); Sodium, Blood 132 mmol/L (136-145)
--- NOTE | 2018-12-01 07:44 | NUR ---
SHIFT SUMMARY PT AXO X4. RLE IN IMMOBILIZER, PPPX4; PT STS N/T AT BASELINE. MOVES TOES AND REPORTS SENSATION. RLE ELEVATED T/O SHIFT. PT DECLINED PAIN MEDICATION T/O SHIFT; PT NOTIFIED MEDICATION AVAILABLE IF DESIRED. RA; OCC COUGH. PT SLEPT WELL T/O NIGHT. PT REPOSITIONED PT ALLOWED; EDUCATION ON PRESSURE WOUND PREVENTION GIVEN. PT DENIES NAUSEA, SOB AND CP. CALL LIGHT IN REACH; FAMILY AT BEDSIDE AT THIS TIME. REPORT GIVEN TO DAY SHIFT RN.
--- NOTE | 2018-12-01 07:59 | NUR ---
PT TO OR AT THIS TIME. FAMILY HAS BEEN AT THE BEDSIDE AND WAS NOTIFIED THAT PT IS BEING TAKEN TO SURGERY.
--- NOTE | 2018-12-01 09:54 | NUR ---
12/01/18 0954 Ileana Quezada PATIENT CAME TO OR WITH OSPINA CATHETER IN PLACE.
--- NOTE | 2018-12-01 13:22 | NUR ---
PHARMACY CONTACTED REPARDING POTASSIUM PHOSPHATE ORDER. THEY CLARIFIED THAT THE PHARMACIST CLARIFIED THIS ORDER WITH DR. GAITAN.
--- NOTE | 2018-12-01 13:28 | NUR ---
PT ARRIVED BACK TO ROOM AT APPROXIMATELY 1320. SHE IS ORIENTED BUT DROWSY. DENIES PAIN AT THIS TIME. VSS. WILL CONTINUE TO MONITOR.
--- NOTE | 2018-12-01 17:56 | NUR ---
SHIFT SUMMARY PAIN HAS BEEN MANAGED WITH PO PAIN MEDICATION POST OP. PT HAS BEEN DROWSY POST-OP. FAMILY WAS AT THE BEDSIDE FOR MUCH OF THE DAY. PT IS TOLERATING PO. PRESSURE INJURY PREVENTION DRESSING PLACED TO COCCYX. PT CAN POSITION IN BED WITH MINIMAL ASSITANCE. VSS. WILL MONITOR UNTIL REPORT TO ONCOMING RN.
--- NOTE | 2018-12-02 05:10 | NUR ---
POD 1 S/P R DISTAL FEMUR REPAIR. PT VSS T/O NIGHT. DRESSING CDI. PAIN MGD W/PO PAIN MEDS W/REP RELIEF. CIRC CHECKS WNL, PT DENIED N/T TO EXT. IMMOBILIZER IN PLACE. PT REPOSITIONED FREQUENTLY T/O NIGHT. FLUID RESTRICTION MAINAINTED PER ORDERS. BHAVESH MAGDALENO. PT USING CALL LIGHT FOR ASSISTANCE, WILL CONT TO MONITOR UNTIL REP GIVEN TO ONCOMING RN.
[2018-12-02 05:29] LABS: BASOPHILS ABSOLUTE AUTO 0.04 K/mm3 (0.00-0.23); BASOPHILS PERCENT AUTO 1 % (0-2); EOSINOPHILS ABSOLUTE AUTO 0.05 K/mm3 (0.00-0.68); EOSINOPHILS PERCENT AUTO 1 % (0-6); Hematocrit 27.1 % (33.0-51.0); Hemoglobin 8.7 g/dL (11.5-16.0); IMMATURE GRAN ABSOLUTE AUTO 0.05 K/mm3 (0.00-0.10); IMMATURE GRAN PERCENT AUTO 1 % (0-1); LYMPHOCYTES PERCENT AUTO 6 % (21-46); MONOCYTES ABSOLUTE AUTO 1.26 K/mm3 (0.16-1.47); MONOCYTES PERCENT AUTO 15 % (4-13); Mean Corpuscular HGB 32.2 pg (26.0-34.0); Mean Corpuscular HGB Conc 32.1 g/dL (31.5-36.5); Mean Corpuscular Volume 100 fL (80-100); Mean Platelet Volume 7.7 fL (9.1-12.4); NEUTROPHILS ABSOLUTE AUTO 6.73 K/mm3 (1.96-9.15); NEUTROPHILS PERCENT AUTO 78 % (41-73); Platelet Count 181 K/mm3 (150-400); RDW Coefficient Variation 18.2 % (11.7-14.2); RDW Standard Deviation 65.4 fL (35.1-46.3); White Blood Cell Count 8.63 K/mm3 (4.00-11.30)
[2018-12-02 05:47] LABS: Albumin, Blood 2.5 g/dL (3.4-5.0); Anion Gap 8 mmol/L (6-16); Blood Urea Nitrogen 17 mg/dL (8-24); Bun/Creatinine Ratio 27.9 (12.0-20.0); CO2, Blood 21 mmol/L (21-32); Calcium, Blood 7.3 mg/dL (8.5-10.1); Chloride, Blood 101 mmol/L (98-108); Creatinine, Blood 0.61 mg/dL (0.40-1.00); Glomerular Filtration Rate >60 (60-); Glucose, Blood 109 mg/dL (70-99); Phosphorus, Blood 2.2 mg/dL (2.5-4.9); Potassium, Blood 4.9 mmol/L (3.5-5.5); Sodium, Blood 130 mmol/L (136-145)
--- NOTE | 2018-12-02 12:58 | NUR ---
MESSAGE LEFT WITH JACKSON CADET TO TALK WITH PT AND FAMILY.
--- NOTE | 2018-12-02 18:02 | NUR ---
SHIFT SUMMARY PAIN HAS BEEN MANAGED WITH PO PAIN MEDICATION THIS SHIFT. PT WORKED WITH THERAPY AND WAS A 2 PERSON ASSISTED TO SIT AT THE EDGE OF THE BED. SHE WAS UNABLE TO TO GET OOB; THERAPY FELT SHE WOULD REQUIRE A LIFT TO GET TO THE CHAIR. PT HAS BEEN ASSISTED WITH REPOSITIONING. FAMILY HAS BEEN AT THE BEDSIDE. VSS. WILL MONITOR UNTIL REPORT TO ONCOMING RN.
--- NOTE | 2018-12-03 04:24 | NUR ---
POD 2 S/P R DISTAL FEMUR REPAIR. PT VSS T/O NIGHT. SATS >90% ON RA. DRESSING CDI, IMMOBILIZER IN PLACE. PAIN MGD W/PO PAIN MEDS W/REP RELIEF. PT ASSISTING W/REPOSITIONING IN BED, RLE ELEVATED. PLAN TO D/C OSPINA CATH THIS AM. 1000ML FLUID RESTRICTION MAINTAINED. PT USING CALL LIGHT FOR ASSISTANCE, WILL CONT TO MONITOR UNTIL REP GIVEN TO ONCOMING RN.
[2018-12-03 05:38] LABS: BASOPHILS ABSOLUTE AUTO 0.03 K/mm3 (0.00-0.23); BASOPHILS PERCENT AUTO 0 % (0-2); EOSINOPHILS ABSOLUTE AUTO 0.06 K/mm3 (0.00-0.68); EOSINOPHILS PERCENT AUTO 1 % (0-6); Hematocrit 27.8 % (33.0-51.0); Hemoglobin 9.1 g/dL (11.5-16.0); IMMATURE GRAN ABSOLUTE AUTO 0.05 K/mm3 (0.00-0.10); IMMATURE GRAN PERCENT AUTO 1 % (0-1); LYMPHOCYTES ABSOLUTE AUTO 0.43 K/mm3 (0.84-5.20); LYMPHOCYTES PERCENT AUTO 6 % (21-46); MONOCYTES ABSOLUTE AUTO 1.12 K/mm3 (0.16-1.47); MONOCYTES PERCENT AUTO 16 % (4-13); Mean Corpuscular HGB 32.5 pg (26.0-34.0); Mean Corpuscular HGB Conc 32.7 g/dL (31.5-36.5); Mean Corpuscular Volume 99 fL (80-100); Mean Platelet Volume 7.8 fL (9.1-12.4); NEUTROPHILS ABSOLUTE AUTO 5.22 K/mm3 (1.96-9.15); NEUTROPHILS PERCENT AUTO 76 % (41-73); Platelet Count 200 K/mm3 (150-400); RDW Coefficient Variation 17.4 % (11.7-14.2); RDW Standard Deviation 62.8 fL (35.1-46.3); White Blood Cell Count 6.91 K/mm3 (4.00-11.30)
[2018-12-03 07:04] LABS: Albumin, Blood 2.4 g/dL (3.4-5.0); Anion Gap 9 mmol/L (6-16); Blood Urea Nitrogen 13 mg/dL (8-24); CO2, Blood 22 mmol/L (21-32); Calcium, Blood 7.8 mg/dL (8.5-10.1); Chloride, Blood 102 mmol/L (98-108); Creatinine, Blood 0.59 mg/dL (0.40-1.00); Glomerular Filtration Rate >60 (60-); Glucose, Blood 103 mg/dL (70-99); Phosphorus, Blood 2.2 mg/dL (2.5-4.9); Potassium, Blood 4.7 mmol/L (3.5-5.5); Sodium, Blood 133 mmol/L (136-145)
[2018-12-04 05:03] LABS: BASOPHILS ABSOLUTE AUTO 0.03 K/mm3 (0.00-0.23); BASOPHILS PERCENT AUTO 1 % (0-2); EOSINOPHILS ABSOLUTE AUTO 0.08 K/mm3 (0.00-0.68); EOSINOPHILS PERCENT AUTO 1 % (0-6); Hematocrit 28.4 % (33.0-51.0); Hemoglobin 9.2 g/dL (11.5-16.0); IMMATURE GRAN ABSOLUTE AUTO 0.03 K/mm3 (0.00-0.10); IMMATURE GRAN PERCENT AUTO 1 % (0-1); LYMPHOCYTES ABSOLUTE AUTO 0.52 K/mm3 (0.84-5.20); LYMPHOCYTES PERCENT AUTO 9 % (21-46); MONOCYTES ABSOLUTE AUTO 1.01 K/mm3 (0.16-1.47); MONOCYTES PERCENT AUTO 17 % (4-13); Mean Corpuscular HGB 32.4 pg (26.0-34.0); Mean Corpuscular HGB Conc 32.4 g/dL (31.5-36.5); Mean Corpuscular Volume 100 fL (80-100); Mean Platelet Volume 7.7 fL (9.1-12.4); NEUTROPHILS ABSOLUTE AUTO 4.18 K/mm3 (1.96-9.15); NEUTROPHILS PERCENT AUTO 71 % (41-73); Platelet Count 238 K/mm3 (150-400); RDW Standard Deviation 62.2 fL (35.1-46.3); Red Blood Cell Count 2.84 M/mm3 (3.80-5.20); White Blood Cell Count 5.85 K/mm3 (4.00-11.30)
[2018-12-04 05:26] LABS: Albumin, Blood 2.5 g/dL (3.4-5.0); Anion Gap 7 mmol/L (6-16); Blood Urea Nitrogen 13 mg/dL (8-24); Bun/Creatinine Ratio 19.5 (12.0-20.0); CO2, Blood 24 mmol/L (21-32); Calcium, Blood 7.8 mg/dL (8.5-10.1); Chloride, Blood 103 mmol/L (98-108); Creatinine, Blood 0.67 mg/dL (0.40-1.00); Glomerular Filtration Rate >60 (60-); Glucose, Blood 92 mg/dL (70-99); Magnesium, Blood 2.7 mg/dL (1.6-2.4); Phosphorus, Blood 2.1 mg/dL (2.5-4.9); Potassium, Blood 4.3 mmol/L (3.5-5.5); Sodium, Blood 134 mmol/L (136-145)
--- NOTE | 2018-12-04 05:44 | NUR ---
POD 3 S/P R DISTAL FEFUR REPAIR. PT VSS T/O NIGHT, DRESSING CDI. CAP REFILL WNL, IMMOBILIZER IN PLACE. PT DENIED PAIN T/O NIGHT, REPOSITIONED FOR COMFORT. PT VOIDING URINE W/O DIFFICULTY; IS USING BEDPAN TO VOID. FLUID RESTRICTION MAINTAINED. PT ASSISTING W/REPOSITIONING IN BED, IS USING CALL LIGHT FOR ASSISTANCE, WILL CONT TO MONITOR UNTIL REP GIVEN TO ONCOMING RN.
--- NOTE | 2018-12-04 16:05 | NUR ---
Spiritual care visit conducted. Patient was sitting in a chair in her room but showing signs of fatigue. I had already established therapeutic alliance from prior visits with patient and the family. Patient voiced her struggle with the longivity of her health issues. I listened empathically, reinforced helpful attitudes and practices, provided soothing guitar music and provided prayer. Patient revived for my visit and showed signs of enjoyment and engagement. Patient and her family were complementary and patient jokingly said that she didn't even fall asleep during the prayer. Patient and family appeared to have a reduction of stress.
--- NOTE | 2018-12-04 16:36 | NUR ---
Initial Visit: Palliative Care Consult for advance care planning. Pt resting in a recliner chair upon arrival. She is pleasant and A&O X4. Pt denies pain at this time and reports her pain is managed with current regimen. Engaged in therapeutic conversation and Pt states she is of Catholic reta and attends [employer] regularly. She lives at home with her and reports her son and daughter in law lives in the same neighborhood. She feels that she has adequate support at home between her , son, and daughter in law in care needs that she may require. Discussed POLST/AD with Pt and she states that she will consider completing POLST form with at home. Left POLST form with Pt and educated her on each section. Instructed Pt to contact palliative care with any questions or concerns. Spoke with Pt's nurse and she reports no concerns at this time. Plan is to obtain POLST when completed and assist if needed. Will remain available.
--- NOTE | 2018-12-04 20:02 | NUR ---
RT TO ROOM FOR SCHEDULED BREATHING TX.
--- NOTE | 2018-12-04 22:31 | NUR ---
REPORT GIVEN TO NEXT RN. SHE WAS A 2 PERSON MAX ASSIST TO TRANS FROM CHAIR BACK TO BED. CONT NWB ON RLE. IMMOBILIZER IN PLACE TO RLE. NO ACUTE CHANGES NOTED.
--- NOTE | 2018-12-04 23:32 | NUR ---
ASSUMED CARE OF PT. PT DENIES ANY SIG PAIN. IMMOBILIZER IN PLACE. CALL LIGHT IN REACH.
--- NOTE | 2018-12-05 05:49 | NUR ---
POD 4 S/P RIGHT FEMUR ORIF. DID WELL DURING NIGHT. SLEPT MOST OF SHIFT. PAIN IS MINIMAL. IMMOBILIZER IN PLACE. PT TURNS SELF WELL IN BED. USED BEDPAIN T/O NIGHT AND CALLS APPROPRIATELY. PLAN FOR DC HOME WITH CLEARS WITH PT. CALL LIGHT IN REACH.
[2018-12-05 06:13] LABS: Hematocrit 29.4 % (33.0-51.0); Hemoglobin 9.7 g/dL (11.5-16.0)
[2018-12-05 06:30] LABS: Albumin, Blood 2.7 g/dL (3.4-5.0); Anion Gap 8 mmol/L (6-16); Blood Urea Nitrogen 14 mg/dL (8-24); Bun/Creatinine Ratio 23.1 (12.0-20.0); CO2, Blood 22 mmol/L (21-32); Calcium, Blood 7.9 mg/dL (8.5-10.1); Chloride, Blood 104 mmol/L (98-108); Creatinine, Blood 0.61 mg/dL (0.40-1.00); Glomerular Filtration Rate >60 (60-); Glucose, Blood 97 mg/dL (70-99); Magnesium, Blood 2.6 mg/dL (1.6-2.4); Phosphorus, Blood 2.3 mg/dL (2.5-4.9); Potassium, Blood 4.5 mmol/L (3.5-5.5); Sodium, Blood 134 mmol/L (136-145)
--- NOTE | 2018-12-05 09:56 | NUR ---
Pt visit this AM. Pt reports feeling well today with no concerns. Pt's nurse reports no concerns. Pt states she will complete her POLST after discussion with family. Instructed Pt to contact palliative care with any questions or concerns. Will remain available.
--- NOTE | 2018-12-05 15:49 | NUR ---
Spiritual care visit conducted. Patient was sitting up in bed and alert. Patient is known to me. Patient said that she is feeling much better and was feeling no pain at the time of the visit. Patient said that even though her departure from the hospital was delayed she felt good about it because she is nervous about the her strength level to help perform the tranfers from bed to chair and back. Patient has a very positive outlook.I reinforced helpful attitudes, listened empathically, normalized her experience, recited scripture and provided prayer. Patient expressed thankfulness for the visit and for the prayer.
[2018-12-06 05:19] LABS: Hematocrit 29.6 % (33.0-51.0); Hemoglobin 9.5 g/dL (11.5-16.0)
--- NOTE | 2018-12-06 05:28 | NUR ---
POD 5 S/P R DISTAL FEMUR REPAIR. PT VSS T/O NIGHT. DRESSING CDI, IMMOBILIZER IN PLACE. PT C/O "NERVE" PAIN IN HANDS AND FEET, PAIN MGD PER EMAR W/REP RELIEF. PT DID NOT EGET OOB THIS SHIFT, REP FEELING "WORN OUT" AFTER PRIOR DAY ACTIVITIES. PT REPOSITIONING IN BED W/MIN ASSIST IN BED; EMILIE WELL. PT USING CALL LIGHT FOR ASSISTANCE, WILL CONT TO MONITOR UNTIL REP GIVEN TO ONCOMING RN.
[2018-12-06 05:48] LABS: Albumin, Blood 2.8 g/dL (3.4-5.0); Anion Gap 7 mmol/L (6-16); Blood Urea Nitrogen 12 mg/dL (8-24); Bun/Creatinine Ratio 17.7 (12.0-20.0); CO2, Blood 24 mmol/L (21-32); Calcium, Blood 7.9 mg/dL (8.5-10.1); Chloride, Blood 105 mmol/L (98-108); Creatinine, Blood 0.68 mg/dL (0.40-1.00); Glomerular Filtration Rate >60 (60-); Glucose, Blood 97 mg/dL (70-99); Magnesium, Blood 2.5 mg/dL (1.6-2.4); Phosphorus, Blood 2.5 mg/dL (2.5-4.9); Potassium, Blood 4.4 mmol/L (3.5-5.5); Sodium, Blood 136 mmol/L (136-145)
--- NOTE | 2018-12-06 08:46 | NUR ---
pt up ion chair eating breakfast dr tellez by to see pt
--- NOTE | 2018-12-06 09:45 | NUR ---
PT SITTING UP IN CHAIR SLEEPING
--- NOTE | 2018-12-06 13:45 | NUR ---
pt in the recliner physical therapy at bedside allen unable to come to this meeting but did call and leave a number for the therapist to call
--- NOTE | 2018-12-06 15:53 | NUR ---
SPOKE TO JONATHAN IN PT ABOUT PT'S NEEDS AT HOME. PT REINTERATES THEY SUGGEST SNF FOR SAFETY PT IS UNABLE TO COMPLETE TOILETING WITH 1 ASSIST. STEVENSON, D/C HOME VISITOR HOME BASE HEAD START IN TO SEE FAMILY TO TALK ABOUT D/C OPTIONS PT AND FAMILY DO NOT WANT REHAB AND WISH TO CONTINUE THEIR PLAN OF HOME HEALTH.
--- NOTE | 2018-12-06 16:32 | NUR ---
PATIENT GRANTS PERMISSION FOR DAY CARE SUPERVISOR TY ALICEA TO PROVIDE CARE ON 12/06/18
--- NOTE | 2018-12-06 23:33 | NUR ---
ASSUMED CARE OF PT/ PT SLEEPING IN BED, RESP E/U, NO DISTRESS NOTED. CALL LIGHT IN REACH, WILL CONT TO MONITOR.
[2018-12-07 04:08] LABS: BASOPHILS ABSOLUTE AUTO 0.05 K/mm3 (0.00-0.23); BASOPHILS PERCENT AUTO 1 % (0-2); EOSINOPHILS ABSOLUTE AUTO 0.08 K/mm3 (0.00-0.68); EOSINOPHILS PERCENT AUTO 2 % (0-6); Hematocrit 28.9 % (33.0-51.0); Hemoglobin 9.4 g/dL (11.5-16.0); IMMATURE GRAN ABSOLUTE AUTO 0.04 K/mm3 (0.00-0.10); IMMATURE GRAN PERCENT AUTO 1 % (0-1); LYMPHOCYTES PERCENT AUTO 12 % (21-46); MONOCYTES ABSOLUTE AUTO 0.75 K/mm3 (0.16-1.47); MONOCYTES PERCENT AUTO 15 % (4-13); Mean Corpuscular HGB 32.9 pg (26.0-34.0); Mean Corpuscular HGB Conc 32.5 g/dL (31.5-36.5); Mean Corpuscular Volume 101 fL (80-100); Mean Platelet Volume 7.3 fL (9.1-12.4); NEUTROPHILS PERCENT AUTO 69 % (41-73); Platelet Count 286 K/mm3 (150-400); RDW Coefficient Variation 16.5 % (11.7-14.2); Red Blood Cell Count 2.86 M/mm3 (3.80-5.20); White Blood Cell Count 4.92 K/mm3 (4.00-11.30)
[2018-12-07 04:26] LABS: Alanine Aminotransfer (ALT/SGP 28 U/L (12-78); Albumin, Blood 2.8 g/dL (3.4-5.0); Albumin/Globulin Ratio 0.8 (0.8-1.8); Alk Phos 62 U/L (50-136); Anion Gap 8 mmol/L (6-16); Aspartate Aminotrans (AST/SGOT 19 U/L (12-37); Bilirubin, Total 0.4 mg/dL (0.1-1.0); Blood Urea Nitrogen 16 mg/dL (8-24); Bun/Creatinine Ratio 24.5 (12.0-20.0); CO2, Blood 22 mmol/L (21-32); Calcium, Blood 7.8 mg/dL (8.5-10.1); Chloride, Blood 106 mmol/L (98-108); Creatinine, Blood 0.65 mg/dL (0.40-1.00); Globulin, Blood 3.3 g/dL (2.2-4.0); Glomerular Filtration Rate >60 (60-); Glucose, Blood 93 mg/dL (70-99); Magnesium, Blood 2.4 mg/dL (1.6-2.4); Phosphorus, Blood 2.3 mg/dL (2.5-4.9); Sodium, Blood 136 mmol/L (136-145); Total Protein, Blood 6.1 g/dL (6.4-8.2)
--- NOTE | 2018-12-07 04:59 | NUR ---
POD 7 S/P R DISTAL FEMUR REP. PT VSS, DRESSING CDI W/IMMOBILIZER IN PLACE. PT DENIED PAIN, REPOSITIONED FOR COMFORT. 1000 ML FLUID RESTRICTION CONT PER ORDERS. EDEMA TO HIPS APPEARS TO BE IMPROVING. PT REQ 2 MAX ASSIST FOR TRANSFERS, REPOSITIONS IN BED W/MIN ASSIST. PT USING CALL LIGHT FOR ASSISTANCE, WILL CONT TO MONITOR UNTIL REP GIVEN TO ONCOMING RN.
--- NOTE | 2018-12-07 06:50 | NUR ---
recvd report from previous shift rn silvestre, pt awake in bed, a/o x 4, pleasant/cooperative, states no pain at this time. bed in lowest position, bed rails up x 2, call light within reach
--- NOTE | 2018-12-07 14:54 | NUR ---
called report to receiving RN at [facility]. asset management coordinator Hannah removed peripheral IV WNL, pt's belongings to be transported via wheelchair van, family notified of transfer, with pt at this time.
== END 2018-12-07 15:02 | DRG 481 ==
LOC: ER 21:38 → SURS 23:47 → ICUE 11-26 20:08 → SURS 11-27 14:21
PROVIDERS: Emergency Medicine; Internal Medicine; Internal Medicine Nephrology; Orthopaedic Surgery; ADMIT Internal Medicine
PROC: 30233N1 Transfusion of Nonautologous Red Blood Cells into Peripheral Vein, Percutaneous Approach (ICD-10-PCS; 2018-12-01)
PROC: 0QSB04Z Reposition Right Lower Femur with Internal Fixation Device, Open Approach (ICD-10-PCS; principal; 2018-12-01 09:00)
DX: M97.11XA Periprosthetic fracture around internal prosthetic right knee joint, initial encounter (principal); C79.51 Secondary malignant neoplasm of bone; E22.2 Syndrome of inappropriate secretion of antidiuretic hormone; W18.30XA Fall on same level, unspecified, initial encounter; Y92.9 Unspecified place or not applicable; Z79.82 Long term (current) use of aspirin; Z96.651 Presence of right artificial knee joint; Z92.21 Personal history of antineoplastic chemotherapy; Z87.891 Personal history of nicotine dependence; E87.6 Hypokalemia; K21.9 Gastro-esophageal reflux disease without esophagitis; E78.5 Hyperlipidemia, unspecified; I71.2 Thoracic aortic aneurysm, without rupture; F32.9 Major depressive disorder, single episode, unspecified; Z79.02 Long term (current) use of antithrombotics/antiplatelets; E86.0 Dehydration; C50.919 Malignant neoplasm of unspecified site of unspecified female breast; J20.5 Acute bronchitis due to respiratory syncytial virus; Z90.12 Acquired absence of left breast and nipple; Z95.5 Presence of coronary angioplasty implant and graft; J44.9 Chronic obstructive pulmonary disease, unspecified; Z95.2 Presence of prosthetic heart valve; E83.39 Other disorders of phosphorus metabolism; E88.09 Other disorders of plasma-protein metabolism, not elsewhere classified; N18.2 Chronic kidney disease, stage 2 (mild); R26.89 Other abnormalities of gait and mobility; D63.0 Anemia in neoplastic disease; I12.9 Hypertensive chronic kidney disease with stage 1 through stage 4 chronic kidney disease, or unspecified chronic kidney disease
CPT/HCPCS: 29505; 36415; 36430; 51702; 71046; 73502; 73560-RT; 73701; 74018; 80048; 80053; 80069; 81003; 82274; 82533; 82728; 83540; 83550; 83735; 83880; 83930; 84145; 84295; 84443; 84550; 85014; 85018; 85025; 85027; 85610; 86850; 86900; 86901; 86923; 87070; 87205; 87486; 87581; 87633; 87798; 93005; 93010; 94640; 94760; 96361; 96374; 97110; 97162; 97167; 97530; 97535; 99285-25; C1713; C9113; G8987; G8988; J0171; J0330; J0456; J0690; J0735; J1650; J1885; J2370; J2405; J2710; J2795; J3010; J3480; J7030; J7040; J7050; J7060; J7120; P9016; P9612; Q9967

== ENCOUNTER → 2020-01-23 | Outpatient (CLI) | payer MEDICARE, OTHER ==
[~2020-01-23] MED LIST changes: +ALCALAK PO
[2020-01-23 11:48] LABS: BASOPHILS ABSOLUTE AUTO 0.01 K/mm3 (0.00-0.23); BASOPHILS PERCENT AUTO 0 % (0-2); EOSINOPHILS ABSOLUTE AUTO 0.02 K/mm3 (0.00-0.68); EOSINOPHILS PERCENT AUTO 0 % (0-6); Hematocrit 36.1 % (33.0-51.0); IMMATURE GRAN ABSOLUTE AUTO 0.25 K/mm3 (0.00-0.10); IMMATURE GRAN PERCENT AUTO 3 % (0-1); LYMPHOCYTES ABSOLUTE AUTO 1.85 K/mm3 (0.84-5.20); LYMPHOCYTES PERCENT AUTO 24 % (21-46); MONOCYTES ABSOLUTE AUTO 0.52 K/mm3 (0.16-1.47); MONOCYTES PERCENT AUTO 7 % (4-13); Mean Corpuscular HGB 30.2 pg (26.0-34.0); Mean Corpuscular HGB Conc 33.2 g/dL (31.5-36.5); Mean Corpuscular Volume 91 fL (80-100); Mean Platelet Volume 8.6 fL (9.1-12.4); NEUTROPHILS ABSOLUTE AUTO 5.09 K/mm3 (1.96-9.15); NEUTROPHILS PERCENT AUTO 66 % (41-73); Platelet Count 228 K/mm3 (150-400); RDW Coefficient Variation 14.8 % (11.7-14.2); RDW Standard Deviation 48.5 fL (35.1-46.3); Red Blood Cell Count 3.97 M/mm3 (3.80-5.20); White Blood Cell Count 7.74 K/mm3 (4.00-11.30)
[2020-01-23 12:01] LABS: Alanine Aminotransfer (ALT/SGP 30 U/L (12-78); Albumin, Blood 3.6 g/dL (3.4-5.0); Albumin/Globulin Ratio 1.3 (0.8-1.8); Alk Phos 149 U/L (50-136); Anion Gap 8 mmol/L (6-16); Aspartate Aminotrans (AST/SGOT 21 U/L (12-37); Bilirubin, Total 0.4 mg/dL (0.1-1.0); Blood Urea Nitrogen 36 mg/dL (8-24); Bun/Creatinine Ratio 41.2 (12.0-20.0); CO2, Blood 23 mmol/L (21-32); Calcium, Blood 8.7 mg/dL (8.5-10.1); Chloride, Blood 105 mmol/L (98-108); Creatinine, Blood 0.87 mg/dL (0.40-1.00); Globulin, Blood 2.7 g/dL (2.2-4.0); Glomerular Filtration Rate >60 (60-); Glucose, Blood 87 mg/dL (70-99); Potassium, Blood 4.4 mmol/L (3.5-5.5); Sodium, Blood 136 mmol/L (136-145); Total Protein, Blood 6.3 g/dL (6.4-8.2)
== END | disposition home or self-care (01) ==
LOC: LAB SHORT 11:25 → LAB 11:25
PROVIDERS: Internal Medicine Hematology & Oncology
DX: C50.912 Malignant neoplasm of unspecified site of left female breast (principal)
CPT/HCPCS: 80053; 85025

== ENCOUNTER 2020-07-09 20:48 | Inpatient (IN) | payer MEDICARE, OTHER ==
[~2020-07-09] VITALS: Ht 160 cm; Wt 69.5 kg
[~2020-07-09 20:48] MED LIST changes: -ALCALAK PO; +ASPIR 8181 M1 PO; -BUDE10.22 INH; +CALCIUM 600-VI1 EAC2 PO; -Daily Multiple1 EACH PO; -MEGARED OMEGA-1 EAC1 PO; +MEGARED OMEGA-1 EAC3 PO; +MULTI VITAMIN1 EACH PO; +SYMBICORT 80-10.2 GM INH
[2020-07-09 21:42] LABS: BASOPHILS ABSOLUTE AUTO 0.02 K/mm3 (0.00-0.23); BASOPHILS PERCENT AUTO 0 % (0-2); EOSINOPHILS PERCENT AUTO 0 % (0-6); Hematocrit 33.8 % (33.0-51.0); Hemoglobin 11.5 g/dL (11.5-16.0); IMMATURE GRAN ABSOLUTE AUTO 0.48 K/mm3 (0.00-0.10); IMMATURE GRAN PERCENT AUTO 5 % (0-1); LYMPHOCYTES ABSOLUTE AUTO 0.48 K/mm3 (0.84-5.20); LYMPHOCYTES PERCENT AUTO 5 % (21-46); MONOCYTES ABSOLUTE AUTO 0.44 K/mm3 (0.16-1.47); MONOCYTES PERCENT AUTO 4 % (4-13); Mean Corpuscular HGB 33.9 pg (26.0-34.0); Mean Corpuscular Volume 100 fL (80-100); Mean Platelet Volume 9.5 fL (9.1-12.4); NEUTROPHILS PERCENT AUTO 87 % (41-73); NRBC ABSOLUTE 0.11 K/mm3 (0.00-0.02); Platelet Count 146 K/mm3 (150-400); RDW Coefficient Variation 15.9 % (11.7-14.2); RDW Standard Deviation 58.4 fL (35.1-46.3); Red Blood Cell Count 3.39 M/mm3 (3.80-5.20); White Blood Cell Count 10.72 K/mm3 (4.00-11.30)
[2020-07-09 21:53] LABS: Anion Gap 11 mmol/L (6-16); Blood Urea Nitrogen 23 mg/dL (8-24); Bun/Creatinine Ratio 33.1 (12.0-20.0); CO2, Blood 20 mmol/L (21-32); Calcium, Blood 8.7 mg/dL (8.5-10.1); Chloride, Blood 98 mmol/L (98-108); Creatinine, Blood 0.69 mg/dL (0.40-1.00); Glomerular Filtration Rate >60 (60-); Glucose, Blood 333 mg/dL (70-99); Potassium, Blood 4.4 mmol/L (3.5-5.5); Sodium, Blood 129 mmol/L (136-145)
[2020-07-09 23:56] LABS: Source, Urine Clean Catch
[2020-07-10 00:02] LABS: Bilirubin, Urine Neg (Neg); Blood, Urine Neg (Neg); Glucose Qualitative, Urine 4+ (Neg); Ketones, Urine Neg (Neg); Leukocyte Esterase, Urine Neg (Neg); Nitrite, Urine Neg (Neg); Protein, Urine 1+ (Neg); Urobilinogen, Urine NORM (Normal)
[2020-07-10 00:10] LABS: Appearance, Urine Cloudy (Clear); Bacteria Many /hpf; Color, Urine Yellow (P-Yellow); Red Blood Cells, Urine Not Seen /hpf (0-2); Squamous Epithelial Cells Rare /hpf (Few); White Blood Cells, Urine Rare /hpf (0-5)
[2020-07-10 04:11] LABS: Source, Urine Clean Catch
[2020-07-10 04:14] LABS: Bilirubin, Urine Neg (Neg); Blood, Urine Neg (Neg); Glucose Qualitative, Urine 3+ (Neg); Ketones, Urine 1+ (Neg); Leukocyte Esterase, Urine Neg (Neg); Nitrite, Urine Neg (Neg); Protein, Urine 1+ (Neg); Urobilinogen, Urine NORM (Normal)
[2020-07-10 04:20] LABS: Appearance, Urine Clear (Clear); Color, Urine Yellow (P-Yellow)
--- NOTE | 2020-07-10 05:39 | NUR ---
SHIFT SUMMARY PT WAS NEW ER ADMIT THIS SHIFT (234), NO ACUTE CHANGES SINCE ASSUMING CARE, NO C/O ANY KIND, PT A&O BUT FORGETFUL, MED REC NOT COMPLETED (PT UNAWARE OF HOME MEDS), PT STATES SHE IS UNABLE TO STAND & HAS BEEN CONT TO BEDPAN THIS SHIFT, SLEPT T/O THE NIGHT & SLEEPING AT THIS TIME, CALL LIGHT IN REACH, WILL CONT TO MONITOR UNTIL REPORT GIVEN TO DAY RN.
[2020-07-10] MEDS ORDERED: ASCO500 PO (08:01)
[2020-07-10] MEDS ORDERED: OXYC5 PO (08:15)
[2020-07-10 09:26] LABS: BASOPHILS ABSOLUTE AUTO 0.01 K/mm3 (0.00-0.23); BASOPHILS PERCENT AUTO 0 % (0-2); EOSINOPHILS ABSOLUTE AUTO 0.01 K/mm3 (0.00-0.68); EOSINOPHILS PERCENT AUTO 0 % (0-6); Hematocrit 33.4 % (33.0-51.0); Hemoglobin 11.4 g/dL (11.5-16.0); IMMATURE GRAN ABSOLUTE AUTO 0.15 K/mm3 (0.00-0.10); IMMATURE GRAN PERCENT AUTO 2 % (0-1); LYMPHOCYTES ABSOLUTE AUTO 0.53 K/mm3 (0.84-5.20); LYMPHOCYTES PERCENT AUTO 5 % (21-46); MONOCYTES ABSOLUTE AUTO 0.77 K/mm3 (0.16-1.47); MONOCYTES PERCENT AUTO 8 % (4-13); Mean Corpuscular HGB 33.9 pg (26.0-34.0); Mean Corpuscular HGB Conc 34.1 g/dL (31.5-36.5); Mean Corpuscular Volume 99 fL (80-100); Mean Platelet Volume 8.4 fL (9.1-12.4); NEUTROPHILS PERCENT AUTO 86 % (41-73); NRBC ABSOLUTE 0.15 K/mm3 (0.00-0.02); NRBC Auto 1.5 /100 WBC (0.0-0.2); Platelet Count 127 K/mm3 (150-400); RDW Coefficient Variation 15.8 % (11.7-14.2); RDW Standard Deviation 57.6 fL (35.1-46.3); Red Blood Cell Count 3.36 M/mm3 (3.80-5.20); White Blood Cell Count 10.17 K/mm3 (4.00-11.30)
[2020-07-10 09:40] LABS: Alanine Aminotransfer (ALT/SGP 45 U/L (12-78); Albumin, Blood 3.3 g/dL (3.4-5.0); Albumin/Globulin Ratio 1.1 (0.8-1.8); Alk Phos 76 U/L (50-136); Anion Gap 9 mmol/L (6-16); Aspartate Aminotrans (AST/SGOT 27 U/L (12-37); Bilirubin, Total 0.7 mg/dL (0.1-1.0); Blood Urea Nitrogen 16 mg/dL (8-24); CO2, Blood 24 mmol/L (21-32); Calcium, Blood 9.4 mg/dL (8.5-10.1); Chloride, Blood 96 mmol/L (98-108); Creatinine, Blood 0.55 mg/dL (0.40-1.00); Globulin, Blood 3.1 g/dL (2.2-4.0); Glomerular Filtration Rate >60 (60-); Glucose, Blood 184 mg/dL (70-99); Potassium, Blood 4.1 mmol/L (3.5-5.5); Sodium, Blood 129 mmol/L (136-145); Total Protein, Blood 6.4 g/dL (6.4-8.2)
--- NOTE | 2020-07-10 19:48 | NUR ---
SUMMARY PT IS A/O X2 THIS AM, FORGETFUL OF DATE/TIME. SHE IS VERY PLEASANT/COOPERATIVE. STATE WEAKNESS/FATIGUE. STATE L LEG SORENESS, SITE RED, TENDER TO TOUCH, DR LARIOS NOTIFIED, IN TO ASSESS, ORDER VENOUS DOPPLER, R/O DVT. PT/OT IN FOR EVAL/TX, STATE PT HEAVY 2 ASSIST, PUT HER BACK IN BED. SHE HAS BEEN ON BEDREST MOST OF DAY, UP TO BSC THIS AFTERNOON. U/A QUESTIONABLE FOR UTI, IV ANTIBX ROCEPHIN GIVEN THIS AM. NA+ LOW @ 129, DR COLEMAN 1L NS @ 75 ML/HR. SHE HAS BEEN AFEBRILE TODAY. PT'S IN TO VISIT THIS AFTERNOON, UPDATED.
--- NOTE | 2020-07-11 04:29 | NUR ---
night time nanny summary pt slept well tonight. a/o x3. could not recall date. denies pain, nausea, dizziness. vss. no acute changes.
[2020-07-11 05:26] LABS: Anion Gap 7 mmol/L (6-16); Blood Urea Nitrogen 16 mg/dL (8-24); Bun/Creatinine Ratio 25.7 (12.0-20.0); CO2, Blood 24 mmol/L (21-32); Calcium, Blood 8.2 mg/dL (8.5-10.1); Chloride, Blood 101 mmol/L (98-108); Creatinine, Blood 0.62 mg/dL (0.40-1.00); Glomerular Filtration Rate >60 (60-); Glucose, Blood 135 mg/dL (70-99); Potassium, Blood 3.7 mmol/L (3.5-5.5); Sodium, Blood 132 mmol/L (136-145)
--- NOTE | 2020-07-11 20:27 | NUR ---
PATIENT DISCHARGED TO HOME AT 1940 WITH HER SPOUSE, SON, AND DAUGHTER IN LAW. HAS NO NEW MEDICATIONS TO [employer] SUPPORT SPECIALIST. IV SL REMOVED WITHOUT INCIDENT. PATIENT EXTREMELY WEAK, REQUIRED 2 PERSON MAX ASSIST TO TRANSFER FROM BED TO W/C AND FROM W/C TO [facility]. ASKED PATIENT IF SHE WAS SURE SHE SHOULD GO HOME IN THIS CONDITION, AND SHE STATED "YES, MY KIDS WILL TAKE GOOD CARE OF ME." EDUCATED SON THAT HH WILL CALL TO SET UP APPOINTMENT FOR EVAL, AND THAT FAMILY WILL NEED TO CALL PATIENT'S PCP (DR. PATEL) TO MAKE F/U APPOINTMENT; VERBALIZED UNDERSTANDING.
== END 2020-07-11 19:59 | disposition home health service (06) | DRG 641 ==
LOC: ER 20:48 → MEDS 07-10 01:32 → ENPENDDIS 07-11 14:35 → MEDS 07-11 19:59
PROVIDERS: Emergency Medicine; Internal Medicine; ADMIT Internal Medicine
DX: E86.0 Dehydration (principal); N39.0 Urinary tract infection, site not specified; C79.51 Secondary malignant neoplasm of bone; E87.1 Hypo-osmolality and hyponatremia; M79.662 Pain in left lower leg; C50.919 Malignant neoplasm of unspecified site of unspecified female breast; E78.5 Hyperlipidemia, unspecified; I11.0 Hypertensive heart disease with heart failure; I50.9 Heart failure, unspecified; J44.9 Chronic obstructive pulmonary disease, unspecified; Z87.891 Personal history of nicotine dependence; K21.9 Gastro-esophageal reflux disease without esophagitis; F32.9 Major depressive disorder, single episode, unspecified; R73.9 Hyperglycemia, unspecified; H10.9 Unspecified conjunctivitis
CPT/HCPCS: 36415; 70450; 71045; 80048; 80053; 81001; 82947; 85025; 87086; 93005; 93010; 93971; 96374; 97110; 97112; 97162; 97166; 97530; 97535; 99285-25; A9270; A9270-GY; J0696; J1650; J7030; J7050

== ENCOUNTER → 2020-08-04 | Outpatient (CLI) | payer MEDICARE, OTHER ==
[~2020-08-04] MED LIST changes: +ASCO500 PO; +CEFP200 PO; +OXYC5 PO
[2020-08-04 14:31] LABS: Source, Urine Clean Catch
[2020-08-04 16:07] LABS: BASOPHILS ABSOLUTE AUTO 0.04 K/mm3 (0.00-0.23); BASOPHILS PERCENT AUTO 1 % (0-2); EOSINOPHILS ABSOLUTE AUTO 0.06 K/mm3 (0.00-0.68); EOSINOPHILS PERCENT AUTO 1 % (0-6); Hematocrit 26.8 % (33.0-51.0); Hemoglobin 8.5 g/dL (11.5-16.0); IMMATURE GRAN ABSOLUTE AUTO 0.22 K/mm3 (0.00-0.10); IMMATURE GRAN PERCENT AUTO 3 % (0-1); LYMPHOCYTES ABSOLUTE AUTO 0.71 K/mm3 (0.84-5.20); LYMPHOCYTES PERCENT AUTO 10 % (21-46); MONOCYTES ABSOLUTE AUTO 0.94 K/mm3 (0.16-1.47); MONOCYTES PERCENT AUTO 13 % (4-13); Mean Corpuscular HGB 32.9 pg (26.0-34.0); Mean Corpuscular HGB Conc 31.7 g/dL (31.5-36.5); Mean Corpuscular Volume 104 fL (80-100); Mean Platelet Volume 8.5 fL (9.1-12.4); NEUTROPHILS ABSOLUTE AUTO 5.42 K/mm3 (1.96-9.15); NEUTROPHILS PERCENT AUTO 73 % (41-73); NRBC ABSOLUTE 0.08 K/mm3 (0.00-0.02); NRBC Auto 1.1 /100 WBC (0.0-0.2); Platelet Count 222 K/mm3 (150-400); RDW Standard Deviation 60.7 fL (35.1-46.3); Red Blood Cell Count 2.58 M/mm3 (3.80-5.20); White Blood Cell Count 7.39 K/mm3 (4.00-11.30)
[2020-08-04 16:12] LABS: Alanine Aminotransfer (ALT/SGP 41 U/L (12-78); Albumin, Blood 3.3 g/dL (3.4-5.0); Albumin/Globulin Ratio 0.9 (0.8-1.8); Alk Phos 84 U/L (50-136); Anion Gap 9 mmol/L (6-16); Aspartate Aminotrans (AST/SGOT 55 U/L (12-37); Bilirubin, Total 0.4 mg/dL (0.1-1.0); Blood Urea Nitrogen 17 mg/dL (8-24); Bun/Creatinine Ratio 32.4 (12.0-20.0); CO2, Blood 23 mmol/L (21-32); Calcium, Blood 9.3 mg/dL (8.5-10.1); Chloride, Blood 106 mmol/L (98-108); Creatinine, Blood 0.53 mg/dL (0.40-1.00); Globulin, Blood 3.5 g/dL (2.2-4.0); Glomerular Filtration Rate >60 (60-); Glucose, Blood 76 mg/dL (70-99); Potassium, Blood 4.3 mmol/L (3.5-5.5); Sodium, Blood 138 mmol/L (136-145); Total Protein, Blood 6.8 g/dL (6.4-8.2)
[2020-08-04 16:18] LABS: Bilirubin, Urine Neg (Neg); Blood, Urine Neg (Neg); Glucose Qualitative, Urine Neg (Neg); Ketones, Urine Neg (Neg); Leukocyte Esterase, Urine 3+ (Neg); Nitrite, Urine Neg (Neg); Protein, Urine Neg (Neg); Specific Gravity, Urine 1.015 (1.003-1.022); Urobilinogen, Urine NORM (Normal)
[2020-08-04 17:09] LABS: Appearance, Urine Hazy (Clear); Color, Urine Yellow (P-Yellow)
[2020-08-04 17:11] LABS: Red Blood Cells, Urine Not Seen /hpf (0-2)
[2020-08-04 17:12] LABS: Bacteria Few /hpf; Squamous Epithelial Cells Few /hpf (Few)
== END | disposition home or self-care (01) ==
LOC: LAB SHORT 14:18 → LAB 14:18
PROVIDERS: Family Medicine
DX: C44.501 Unspecified malignant neoplasm of skin of breast (principal); M62.81 Muscle weakness (generalized)
CPT/HCPCS: 80053; 81001; 85025; 87077; 87086; 87186

== ENCOUNTER 2020-08-21 14:50 | Emergency (ER) | payer MEDICARE, OTHER ==
[~2020-08-21] VITALS: Ht 170.2 cm; Wt 63.5 kg
[~2020-08-21 14:50] MED LIST changes: -CEFP200 PO
[2020-08-21 16:35] LABS: BASOPHILS ABSOLUTE AUTO 0.04 K/mm3 (0.00-0.23); BASOPHILS PERCENT AUTO 1 % (0-2); EOSINOPHILS PERCENT AUTO 3 % (0-6); Hematocrit 27.7 % (33.0-51.0); Hemoglobin 8.4 g/dL (11.5-16.0); IMMATURE GRAN ABSOLUTE AUTO 0.17 K/mm3 (0.00-0.10); IMMATURE GRAN PERCENT AUTO 2 % (0-1); LYMPHOCYTES ABSOLUTE AUTO 0.69 K/mm3 (0.84-5.20); LYMPHOCYTES PERCENT AUTO 9 % (21-46); MONOCYTES ABSOLUTE AUTO 0.92 K/mm3 (0.16-1.47); MONOCYTES PERCENT AUTO 12 % (4-13); Mean Corpuscular HGB 32.2 pg (26.0-34.0); Mean Corpuscular HGB Conc 30.3 g/dL (31.5-36.5); Mean Corpuscular Volume 106 fL (80-100); Mean Platelet Volume 8.3 fL (9.1-12.4); NEUTROPHILS ABSOLUTE AUTO 5.81 K/mm3 (1.96-9.15); NEUTROPHILS PERCENT AUTO 74 % (41-73); NRBC ABSOLUTE 0.08 K/mm3 (0.00-0.02); Platelet Count 264 K/mm3 (150-400); RDW Coefficient Variation 16.4 % (11.7-14.2); Red Blood Cell Count 2.61 M/mm3 (3.80-5.20); White Blood Cell Count 7.83 K/mm3 (4.00-11.30)
[2020-08-21 16:55] LABS: Alanine Aminotransfer (ALT/SGP 29 U/L (12-78); Albumin, Blood 3.4 g/dL (3.4-5.0); Alk Phos 96 U/L (50-136); Anion Gap 8 mmol/L (6-16); Aspartate Aminotrans (AST/SGOT 44 U/L (12-37); Bilirubin, Total 0.5 mg/dL (0.1-1.0); Blood Urea Nitrogen 19 mg/dL (8-24); Bun/Creatinine Ratio 31.1 (12.0-20.0); CO2, Blood 19 mmol/L (21-32); Calcium, Blood 8.9 mg/dL (8.5-10.1); Chloride, Blood 111 mmol/L (98-108); Creatinine, Blood 0.61 mg/dL (0.40-1.00); Globulin, Blood 3.4 g/dL (2.2-4.0); Glomerular Filtration Rate >60 (60-); Glucose, Blood 97 mg/dL (70-99); Potassium, Blood 4.2 mmol/L (3.5-5.5); Sodium, Blood 138 mmol/L (136-145); Total Protein, Blood 6.8 g/dL (6.4-8.2); Troponin I <0.015 ng/mL (0.000-0.040)
[2020-08-21 17:11] LABS: Source, Urine Clean Catch
[2020-08-21 17:20] LABS: Appearance, Urine Cloudy (Clear); Bilirubin, Urine Neg (Neg); Blood, Urine 2+ (Neg); Color, Urine Yellow (P-Yellow); Glucose Qualitative, Urine Neg (Neg); Ketones, Urine 2+ (Neg); Leukocyte Esterase, Urine 3+ (Neg); Nitrite, Urine Pos (Neg); Protein, Urine 1+ (Neg); Specific Gravity, Urine 1.015 (1.003-1.022); Urobilinogen, Urine NORM (Normal)
[2020-08-21 17:40] LABS: Red Blood Cells, Urine 0-2 /hpf (0-2); White Blood Cells, Urine TNTC /hpf (0-5)
[2020-08-21 17:41] LABS: Bacteria Mod /hpf; Squamous Epithelial Cells Few /hpf (Few)
[2020-08-21] MEDS ORDERED: CEFP200 PO (18:33)
== END 2020-08-21 19:03 | disposition home or self-care (01) ==
LOC: ER 14:50
PROVIDERS: Emergency Medicine
DX: N39.0 Urinary tract infection, site not specified (principal); E86.0 Dehydration; I11.0 Hypertensive heart disease with heart failure; I50.9 Heart failure, unspecified; J44.9 Chronic obstructive pulmonary disease, unspecified; K21.9 Gastro-esophageal reflux disease without esophagitis; E78.5 Hyperlipidemia, unspecified; F32.9 Major depressive disorder, single episode, unspecified; Z85.3 Personal history of malignant neoplasm of breast; Z79.01 Long term (current) use of anticoagulants; Z88.2 Allergy status to sulfonamides; Z88.5 Allergy status to narcotic agent; Z88.1 Allergy status to other antibiotic agents; Z79.51 Long term (current) use of inhaled steroids; Z79.02 Long term (current) use of antithrombotics/antiplatelets; Z79.82 Long term (current) use of aspirin; Z79.899 Other long term (current) drug therapy; Z87.891 Personal history of nicotine dependence
CPT/HCPCS: 80053; 81001; 84484; 85025; 87077; 87086; 87186; 93005; 93010; 96365; 99284-25; J0696